=== PATIENT | male | born 1980 | race Caucasian/White ===

== ENCOUNTER 2016-11-05 20:10 | Emergency (ER) | payer BC ==
[2016-11-05] MEDS ORDERED: Diph,Pert(Acell),Tet Vac 0.5 ML SYR IM ONE (20:26)
--- NOTE | 2016-11-05 20:30 | Emergency Department Record ---
History of Present Illness - General Chief Complaint: Laceration(s) Stated Complaint: LACERATION ON LEFT ARM Time Seen by Provider: 11/05/16 20:26 Source: Patient Mode of Arrival: Ambulatory Limitations: No limitations - History of Present Illness Initial Commments: 36 yo male presents to ED with a CC of laceration to the left forearm when the forearm became trapped between his boat trailer and his trailer hitch. 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 Patient denies other injury, and denies health problems at his baseline. Patient is unsure if his tetanus is UTD. Onset/Timin -: Minutes(s) Extremity Location: Left: Forearm Place: Home Context: Accidental Associated Symptoms: Pain, Other Treatments Prior to Arrival: Bandage - [place] Coma Scale Eye Response: (4) Open spontaneously Motor Response: (6) Obeys commands Verbal Response: (5) Oriented [place] Total: 15 - Related Data Patient Tetanus UTD (within 5 yrs): No Previous Rx's Medication Instructions Recorded Cephalexin [Keflex] 500 mg PO QID #40 cap 11/05/16 Hydrocodone/Acetaminophen [[place] 1 tab PO Q6H PRN #13 tab 11/05/16 5mg/325mg] Allergies Allergy/AdvReac Type Severity Reaction Status Date / Time No Known Drug Allergies Allergy Verified 11/05/16 20:16 Travel Screening - Travel/Exposure Within Last 30 Days Have you traveled within the last 30 days?: No Review of Systems Constitutional: Denies: Chills, Fever, Malaise, Night sweats Eyes: Denies: Eye discharge, Eye pain ENT: Denies: Congestion, Ear pain, Epistaxis Respiratory: Denies: Cough, Dyspnea Cardiovascular: Denies: Chest pain, Dyspnea on exertion Endocrine: Denies: Fatigue, Heat or cold intolerance Gastrointestinal: Denies: Abdominal pain, Nausea, Vomiting Genitourinary: Denies: Incontinence, Retention Musculoskeletal: Reports: Arthralgia. Denies: Back pain, Gout, Joint swelling Skin: Denies: Bruising, Change in color, Change in hair/nails, Rash Neurological: Denies: Abnormal gait, Confusion, Headache, Seizure Psychiatric: Denies: Anxiety Hematological/Lymphatic: Denies: Anemia, Blood Clots Past Medical History - SOCIAL HISTORY Smoking Status: Never smoker Alcohol Use: None Drug Use: None - RESPIRATORY Hx Respiratory Disorders: No - CARDIOVASCULAR Hx Cardio Disorders: No - NEURO Hx Neuro Disorders: No - GI Hx GI Disorders: No - Hx Genitourinary Disorders: No - ENDOCRINE Hx Endocrine Disorders: No - MUSCULOSKELETAL Hx Musculoskeletal Disorders: No - PSYCH Hx Psych Problems: No Family Medical History Any Significant Family History?: No Physical Exam - General General Appearance: Alert, Oriented x3, Cooperative, Moderate distress Limitations: No limitations - Head Head exam: Atraumatic, Normocephalic, Normal inspection Head exam detail: negative: Abrasion, Contusion, Scales's sign, General tenderness, Hematoma, Laceration - Eye Eye exam: Normal appearance. negative: Conjunctival injection, Periorbital swelling, Periorbital tenderness, Scleral icterus - ENT Ear exam: negative: Auricular hematoma, Auricular trauma Nasal Exam: negative: Active bleeding, Discharge, Dried blood, Foreign body Mouth exam: negative: Drooling, Laceration, Muffled voice, Tongue elevation - Neck Neck exam: Normal inspection. negative: Meningismus, Tenderness - Respiratory Respiratory exam: Normal lung sounds bilaterally. negative: Rales, Respiratory distress, Rhonchi, Stridor - Cardiovascular Cardiovascular Exam: Regular rate, Normal rhythm, Normal heart sounds - GI/Abdominal GI/Abdominal exam: Soft. negative: Rebound, Rigid, Tenderness - Rectal Rectal exam: Deferred - exam: Deferred - Extremities Extremities exam: Full ROM, Tenderness, Other. negative: Calf tenderness, Pedal edema - Back Back exam: Denies: CVA tenderness (R), CVA tenderness (L) - Neurological Neurological exam: Alert, Normal gait, Oriented X3 - Psychiatric Psychiatric exam: Normal affect, Normal mood - Skin Skin exam: Normal color. negative: Abrasion Type of lesion: negative: abrasion Course Vital Signs 11/05/16 20:22 Temperature 97.5 F L Pulse Rate [ 75 Pulse Ox Probe] Respiratory 18 Rate Blood Pressure 121/67 [Right Arm] Pulse Ox 100 - Reevaluation(s) Reevaluation #1: 11/05/16 21:29 Left forearm: Soft-tissue defect, no FB, no laceration Following radiology review, patient was re-examined under sterile, clean field. Patient has injury/laceration to the flexor muscle body, no obvious tendon injury at this level. Patient has weakness with ethanol maintenance mechanic strength compared with the right (4/5, 5/5). Patient also reports moderate numbness to the dorsum of the left thumb, medial hand dorsally, and index finger dorsally. Case was discussed with Dr. Herr, will arrange for follow-up in 1-3 days. Procedure Note: 6.5 cm laceration of the left proximal 1/3rd of the left forearm was anesthetized with 6 mL of Lidocaine with Epi achieving good anesthesia. Wound was visualized in all directions under a blood-less, sterile field for FB's, none found, and for tendon/muscle injury. Patient was found to have injury to the flexor muscle body on examination. Wound was closed with 4- 0 Prolene using interrupted fashion, #11 sutures. Wound was closed achieving excellent cosmesis and hemostasis. Tetanus was updated, and Keflex was initiated in the ED. Patient was instructed to follow-up with Dr. Herr in 1- 3 days. Disposition Disposition: Discharge Clinical Impression: Laceration of forearm, complicated Qualifiers: Encounter type: initial encounter Laterality: left Qualified Code(s): S51.812A - Laceration without foreign body of left forearm, initial encounter Disposition: Home, Self-Care Condition: (2) Stable Instructions: Laceration (ED) Additional Instructions: Return to ED if your symptoms worsen or if you have any concerns. Keflex and [place] as directed. Follow-up with Dr. Herr next week as directed, call in AM for appointment. Prescriptions: Cephalexin [Keflex] 500 mg PO QID #40 cap Hydrocodone/Acetaminophen [[place] 5mg/325mg] 1 tab PO Q6H PRN #13 tab PRN Reason: Pain - General Referrals: ROLAND HERR [] - Forms: Patient Portal Access Time of Disposition: 21:27
[2016-11-05] MEDS ORDERED: HYDROCODONE/APAP 10/325 TABLET PO ONE (20:55)
[2016-11-05] MEDS ORDERED: HYDROCODONE/APAP 5/325MG TABLET PO ONE (21:28)
[2016-11-05] MEDS ORDERED: CEPHALEXIN 500 MG CAPSULE PO STA (21:29)
== END 2016-11-05 22:12 | disposition home or self-care (01) ==
LOC: ER 20:10
DX: S57.82XA Crushing injury of left forearm, initial encounter (principal); S51.812A Laceration without foreign body of left forearm, initial encounter; W23.0XXA Caught, crushed, jammed, or pinched between moving objects, initial encounter; Y92.007 Garden or yard of unspecified non-institutional (private) residence as the place of occurrence of the external cause
CPT/HCPCS: 12002; 90715; 96372; 99283; 99284